=== PATIENT | female | born 1980 | race Caucasian/White ===

== ENCOUNTER 2017-04-26 07:15 | Inpatient (IN) | payer BC ==
[2017-05-04] MEDS ORDERED: Acetaminophen/Codeine 30-300mg Tablet PO PRN ×4 (07:02→15:06)
[2017-05-04] MEDS ORDERED: LR / Pitocin 40 units/1000 ml 1,000 ML IV PRN (07:02)
[2017-05-04] MEDS ORDERED: Ibuprofen 800 MG TAB PO PRN (07:02)
[2017-05-04] MEDS ORDERED: Ondansetron HCl/PF 4 MG/2 ML Vial IVP PRN ×3 (07:02→15:06)
[2017-05-04] MEDS ORDERED: LR 500 ML/Oxytocin 10 units 500 ML IV SCH ×2 (07:02)
[2017-05-04] MEDS ORDERED: Lidocaine 1% (PF) 30 ML VIAL SC PRN (07:02)
[2017-05-04] MEDS ORDERED: Promethazine HCl 25 MG/ML VIAL IM PRN ×3 (07:02→15:06)
[2017-05-04] MEDS ORDERED: CEFAZOLIN 2 GM in Sodium Chloride 0.9% 100 ML IVPB SCH (07:02)
[2017-05-04] MEDS: Lactated Ringer's 1,000 ML IV SCH ×2 (07:20→16:04)
[2017-05-04 07:43] VITALS: BMI 25.8
[2017-05-04] MEDS ORDERED: CEFAZOLIN/Water 2 GM/20 ML SYRINGE SLOW IVP SCH (08:00)
[2017-05-04 08:22] LABS: Hematocrit 40.9 % (36.0-47.0); Mean Platelet Volume 8.2 fL (7.4-10.4); Red Blood Cell (RBC) Count 4.48 mill/uL (4.20-5.40); White Blood Cell (WBC) Count 8.2 thou/uL (4.8-10.8)
--- NOTE | 2017-05-04 10:09 | PDOC.LDHP ---
Labor and Delivery H&P Chief complaint: scheduled induction HPI: Pt is a 37yo @ 39.6 weeks here for scheduled IOL. Current gestational age (weeks): 39 Due date: 05/05/17 Dating criteria: last menstrual period, first trimester ultrasound Grav: 2 Para: 1 OB History Details: x 1 Current complications: none Abnormal US findings: No Past Medical History: none Previous surgical history: none Allergies/Adverse Reactions: Allergies Allergy/AdvReac Type Severity Reaction Status Date / Time Penicillins Allergy Mild Rash Verified 02/15/15 23:26 Social history: none - Physical Exam Vital signs reviewed and normal: yes General: resting Lungs: nonlabored breathing Abdomen: gravid Extremeties: no edema FHT: category 1 - Vaginal Exam cm dilated: 2 Effacement: 50% Station: -2 - OB Labs Blood type: O RH: positive Antibody Screen: negative HIV: negative RPR: negative HEPSAg: negative 1 hour GCT: negative GBS: positive Rubella: immune - Assessment L&D Assessment: elective induction at term - Plan Plan: admit to L&D, cervical ripening, labor augmentation if indicated, GBS antibiotic prophylaxis, informed consent obtained, anesthesia consult for pain management -: A/P: @ 39.6 here for scheduled elective IOL. FHT reassuring. Ancef (PCN allergy) for GBS+.
[2017-05-04] MEDS ORDERED: Fentanyl 4 mcg/Marc 0.1% Cadd 100 ML ONE (10:28)
[2017-05-04] MEDS ORDERED: ePHEDrine/0.9% NaCl/PF SYRINGE 50 mg/10 ml SLOW IVP PRN (11:04)
[2017-05-04] MEDS ORDERED: Acetaminophen 325 MG TAB PO PRN (11:04)
[2017-05-04] MEDS ORDERED: Lactated Ringer's 500 ML IV PRN (11:04)
[2017-05-04] MEDS ORDERED: diphenhydrAMINE 50 MG/ML VIAL IVP PRN (11:04)
[2017-05-04] MEDS ORDERED: Naloxone HCl 0.4 mg/ml Vial IVP PRN ×2 (11:04)
[2017-05-04] MEDS ORDERED: Eucerin (Mineral Oil/Petrolatum,White) 30 gm Jar TOP PRN (11:04)
[2017-05-04] MEDS ORDERED: Fentanyl 4mcg/Marcaine 0.1% Cassette 100 ML EPIDURAL SCH (11:15)
[2017-05-04] MEDS ORDERED: Communication Order-Pharmacy FS SCH (11:15)
--- NOTE | 2017-05-04 14:09 | PDOC.OPDEL ---
OB Operative/Delivery Note Delivery Dr/Surgeon: Jose Raul Pre-Delivery Diagnosis: elective induction Procedure/Post Delivery Dx: spontaneous vaginal delivery Weeks gestation: 39 - Findings A Sex: male - Additional Findings/Plan Placenta delivered: spontaneous Repaired Obstetrical Laceration: 2nd degree (w right periurethral) Estimated blood loss: 300ml Compilations/Other Findings: loose nuchal x 2 reduced at perineum
[2017-05-04] MEDS ORDERED: Milk Of Magnesia 30 ML UDCUP PO PRN (15:06)
[2017-05-04] MEDS ORDERED: Preparation H Ointment 28 GM TUBE PR PRN (15:06)
[2017-05-04] MEDS ORDERED: diphenhydrAMINE 25 MG CAP PO PRN (15:06)
[2017-05-04] MEDS ORDERED: Lanolin Ointment 7 GM TUBE TOP PRN (15:06)
[2017-05-04] MEDS ORDERED: LR / Pitocin 40 units/1000 ml 1,000 ML IV SCH (15:06)
[2017-05-04] MEDS ORDERED: Bisacodyl 10 MG SUPP PR PRN (15:06)
[2017-05-04] MEDS ORDERED: Benzocaine/Menthol 20-0.5% 60 ML CAN TOP PRN (15:06)
[2017-05-04] MEDS: Docusate (Surfak) 240 MG CAP PO SCH (21:50)
[2017-05-04] MEDS ORDERED: Ibuprofen 800 MG TAB PO SCH (22:00)
[2017-05-05] MEDS: Ibuprofen 800 MG TAB PO SCH ×2 (00:54→08:14)
[2017-05-05 05:56] VITALS: BP 118/73; TEMP 97.8
[2017-05-05] MEDS: Docusate (Surfak) 240 MG CAP PO SCH (08:14)
[2017-05-05] MEDS ORDERED: Prenatal Vitamin 1 TAB PO SCH (09:00)
--- NOTE | 2017-05-05 09:16 | PDOC.PP ---
Post Progress Note Post Day #: 1 Subjective: doing well, pumping, no concerns, desires DC home today if possible PO intake tolerated: yes Flatus: yes Ambulation: yes Vital Signs (12 hours) Temp Pulse Resp BP BP 05/05/17 05:00 97.8 F 60 20 118/73 05/05/17 00:20 97.9 F 59 L 20 106/57 L Weight Weight 160 lb - Physical Examination General: NAD Respiratory: non-labored breathing Abdominal: no distention Fundus firm & at: below umb Extremities: negative homans (B) Skin: no rash Neurological: no gross focal deficits Psychiatric: normal affect Result Diagrams: 05/04/17 07:20 Additional Labs: Post Labs Blood Type O POSITIVE 05/04/17 07:20 Hep Bs Antigen Non-Reactive S/CO (NonReactive) 05/04/17 07:20 (1) Spontaneous vaginal delivery Code(s): O80 - ENCOUNTER FOR FULL-TERM UNCOMPLICATED DELIVERY Status: Acute - Assessment/Plan PPD#1 sp TSVD @ 39 weeks, poss DC home today if baby DCd.
== END 2017-05-05 16:05 | disposition home or self-care (01) | DRG 775 ==
LOC: EDSTATUS 11:55 → L&D 05-04 06:59 → 3SW 05-04 15:03
PROVIDERS: ADMIT Obstetrics & Gynecology; ATTEND Obstetrics & Gynecology
PROC: 10E0XZZ Delivery of Products of Conception, External Approach (ICD-10-PCS; principal; 2017-05-04)
PROC: 0KQM0ZZ Repair Perineum Muscle, Open Approach (ICD-10-PCS; 2017-05-04)
PROC: 0UQMXZZ Repair Vulva, External Approach (ICD-10-PCS; 2017-05-04)
PROC: 4A0HXCZ Measurement of Products of Conception, Cardiac Rate, External Approach (ICD-10-PCS; 2017-05-04)
DX: O99.824 Streptococcus B carrier state complicating childbirth (principal); O69.81X0 Labor and delivery complicated by cord around neck, without compression, not applicable or unspecified; O70.1 Second degree perineal laceration during delivery; O71.82 Other specified trauma to perineum and vulva; Z3A.39 39 weeks gestation of pregnancy; Z37.0 Single live birth
CPT/HCPCS: 51702; 85027; 86850; 86900; 86901; 87340; J2001; J7120